=== PATIENT | male | born 1985 | race Caucasian/White ===

== ENCOUNTER → 2016-06-17 | Outpatient (CLI) | payer OTHER ==
[2016-06-17 09:17] LABS: CHLORIDE,CL 109 mmol/L (98-110); SODIUM,NA 143 mmol/L (136-146)
== END ==
LOC: MW.CHRC 08:34
PROVIDERS: ATTEND Family Medicine
DX: E66.9 Obesity, unspecified (principal)
CPT/HCPCS: 36415; 80053; 80061; 83036; 84439; 84443; 85025

== ENCOUNTER → 2016-07-29 | Outpatient (CLI) | payer OTHER | LOC: MW.CHRC 09:26 | PROVIDERS: ATTEND Family Medicine | DX: E03.9 Hypothyroidism, unspecified (principal) | CPT/HCPCS: 36415; 84439; 84443 ==

== ENCOUNTER 2017-11-05 20:21 | Emergency (ER) | payer OTHER ==
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
[2017-11-05] MEDS ORDERED: Ketorolac 60 MG/2 ML SDV IM ONE (20:51)
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
== END 2017-11-05 23:22 | disposition home or self-care (01) ==
LOC: MW.ED 20:21
DX: M54.15 Radiculopathy, thoracolumbar region (principal); V89.2XXA Person injured in unspecified motor-vehicle accident, traffic, initial encounter
CPT/HCPCS: 72128; 72131; 96372; 99283; J1885

== ENCOUNTER 2020-11-24 18:46 | Observation (INO) | payer BC, OTHER ==
[2020-11-24] MEDS ORDERED: Sodium Chloride 0.9% 2.5 ML Syringe FLUSH PRN (19:04)
[2020-11-24] MEDS ORDERED: Sodium Chloride 0.9% 10 ML Syringe FLUSH PRN (19:04)
[2020-11-24] MEDS ORDERED: Aspirin 81 MG Tab.Chew PO ONE (19:21)
--- NOTE | 2020-11-24 19:25 | EDM.PDOC ---
ED HPI GENERAL MEDICAL PROBLEM - General Chief Complaint: Chest Pain Stated Complaint: CHEST PAIN PAIN IN RIGHT ARM Time Seen by Provider: 11/24/20 19:06 - History of Present Illness INITIAL COMMENTS - FREE TEXT/NARRATIVE: 35-year-old male history of obesity hypertension hypothyroidism and ADHD he is a non-smoker however his father and grandfather both had MIs in their 40s he is presenting with chest pain. Starting around 230 he developed a substernal chest discomfort with some radiation into the left arm and the neck that was associated with a new dyspnea on exertion. His symptoms do worsen with exertion. He currently has about 7 or 8 out of 10 chest discomfort which is the worst it has been. He has no prior history of stress testing or angiography. He also has sleep apnea and is minimally compliant with his CPAP. He has not had any aspirin as yet. No cough or fever or other symptoms. Left Chest Pain Score (Numeric/FACES): 4 - Related Data Allergies Allergy/AdvReac Type Severity Reaction Status Date / Time No Known Allergies Allergy Verified 11/05/17 20:48 Home Meds: Home Meds Ibuprofen 800 mg PO DAILY 11/24/20 [History] Levothyroxine 75 mcg PO ACBREAKFAST 11/24/20 [History] Lisdexamfetamine [Vyvanse] 70 mg PO DAILY 11/24/20 [History] lisinopriL [Lisinopril] 20 mg PO DAILY 11/24/20 [History] Past Medical History - Past Health History Medical/Surgical History: Denies Medical/Surgical History Cardiovascular History: Reports: Hypertension Psychiatric History: Reports: ADHD - Infectious Disease History Infectious Disease History: Reports: Chicken Pox Social & Family History - Family History Cardiac: Reports: Hypertension Other Cardiac Family History: Father, Grandfather (Paternal), and Grandfather (Maternal) had CT's in their 40's. - Tobacco Use Tobacco Use Status *Q: Never Tobacco User Second Hand Smoke Exposure: No - Caffeine Use Caffeine Use: Reports: None - Recreational Drug Use Recreational Drug Use: No ED ROS GENERAL - Review of Systems Review Of Systems: See Below Free Text/Narrative/Comment: General: No fever. Skin: No rash. Eyes: No vision problems. ENT: No sore throat. Neck: No neck stiffness. Respiratory: Per HPI Cardiac: Per HPI Gastrointestinal: No nausea, vomiting or abdominal pain. Urinary: No dysuria. Musculoskeletal: No myalgias/arthralgias. Neurologic: No headache. ED EXAM, GENERAL - Physical Exam Exam: See Below Free Text/Narrative:: General Appearance: No acute distress, appears comfortable Skin: No rash HEENT: Normocephalic/atraumatic, sclera anicteric, mucous membranes moist Neck: Normal range of motion Chest and Lungs: Bilateral breath sounds, clear to auscultation Cardiovascular: Regular rate and rhythm, no murmur Abdomen: Soft, non-tender Back: Normal Musculoskeletal: No edema or tenderness Neurologic: Awake, alert, no obvious deficits, moving all extremities Psychiatric: Appropriate, cooperative #1 Interpretation EKG Date: 11/24/20 Time: 19:24 EKG Interpretation Comments: Sinus rhythm with a rate of 97 and nonspecific intraventricular conduction delay but no findings of acute ischemia no ST elevations or depressions. Course - Vital Signs Last Recorded V/S: Last Vital Signs Temp 98.4 F 11/24/20 18:51 Pulse 87 11/24/20 20:38 Resp 14 11/24/20 20:38 BP 145/82 H 11/24/20 20:38 Pulse Ox 95 11/24/20 20:38 - Orders/Labs/Meds Orders: Active Orders 24 hr Category Date Time Status Patient Status [ADT] Routine ADT 11/24/20 21:34 Ordered Nitroglycerin [Nitrostat] Med 11/24/20 19:21 Active 0.4 mg SL Q5M PRN Sodium Chloride 0.9% [Saline Flush] Med 11/24/20 19:04 Active 10 ml FLUSH ASDIRECTED PRN Sodium Chloride 0.9% [Saline Flush] Med 11/24/20 19:04 Active 2.5 ml FLUSH ASDIRECTED PRN Saline Lock Insert [OM.PC] Stat Oth 11/24/20 19:04 Ordered Medication Orders Nitroglycerin (Nitroglycerin 0.4 Mg Tab.Sl) 0.4 mg SL Q5M PRN PRN Reason: Chest Pain Last Admin: 11/24/20 19:34 Dose: 0.4 mg Documented by: Admin: 11/24/20 19:27 Dose: 0.4 mg Documented by: STEPHANIE Sodium Chloride (Sodium Chloride 0.9% 10 Ml Syringe) 10 ml FLUSH ASDIRECTED PRN PRN Reason: Keep Vein Open Sodium Chloride (Sodium Chloride 0.9% 2.5 Ml Syringe) 2.5 ml FLUSH ASDIRECTED PRN PRN Reason: Keep Vein Open Labs: Laboratory Tests 11/24/20 11/24/20 11/24/20 Range/Units 18:30 18:30 18:50 WBC 11.50 H (4.0-11.0) K/uL RBC 4.98 (4.50-5.90) M/uL Hgb 13.9 (13.0-17.0) g/dL Hct 42.1 (38.0-50.0) % MCV 84.5 (80.0-98.0) fL MCH 27.9 (27.0-32.0) pg MCHC 33.0 (31.0-37.0) g/dL RDW Std Deviation 44.7 (28.0-62.0) fl RDW Coeff of Hiram 15 (11.0-15.0) % Plt Count 302 (150-400) K/uL MPV 11.70 (7.40-12.00) fL Neut % (Auto) 61.3 (48.0-80.0) % Lymph % (Auto) 30.8 (16.0-40.0) % Alpine % (Auto) 6.9 (0.0-15.0) % Eos % (Auto) 0.8 (0.0-7.0) % Baso % (Auto) 0.2 (0.0-1.5) % Neut # (Auto) 7.1 H (1.4-5.7) K/uL Lymph # (Auto) 3.5 H (0.6-2.4) K/uL Alpine # (Auto) 0.8 (0.0-0.8) K/uL Eos # (Auto) 0.1 (0.0-0.7) K/uL Baso # (Auto) 0.0 (0.0-0.1) K/uL Nucleated RBC % 0.0 /100WBC Nucleated RBCs # 0 K/uL Sodium 140 (136-148) mmol/L Potassium 3.9 (3.5-5.1) mmol/L Chloride 102 (98-107) mmol/L Carbon Dioxide 26.9 (21.0-32.0) mmol/L BUN 19 H (7.0-18.0) mg/dL Creatinine 1.3 (0.8-1.3) mg/dL Est Cr Clr Drug Dosing 88.78 mL/min Estimated GFR (MDRD) > 60.0 ml/min Glucose 90 (74-106) mg/dL Calcium 9.1 (8.5-10.1) mg/dL Total Bilirubin 0.6 (0.2-1.0) mg/dL AST 27 (15-37) IU/L ALT 35 (14-63) IU/L Alkaline Phosphatase 62 (46-116) U/L Troponin I < 0.050 (0.000-0.056) ng/mL Total Protein 8.7 H (6.4-8.2) g/dL Albumin 4.2 (3.4-5.0) g/dL Globulin 4.5 H (2.6-4.0) g/dL Albumin/Globulin Ratio 0.9 (0.9-1.6) Free T4 0.77 (0.76-1.46) ng/dL TSH, Ultra Sensitive 18.65 H (0.36-3.74) uIU/mL SARS-CoV-2 RNA (CATHERINE) (NEGATIVE) 11/24/20 11/24/20 Range/Units 20:30 20:30 WBC (4.0-11.0) K/uL RBC (4.50-5.90) M/uL Hgb (13.0-17.0) g/dL Hct (38.0-50.0) % MCV (80.0-98.0) fL MCH (27.0-32.0) pg MCHC (31.0-37.0) g/dL RDW Std Deviation (28.0-62.0) fl RDW Coeff of Hiram (11.0-15.0) % Plt Count (150-400) K/uL MPV (7.40-12.00) fL Neut % (Auto) (48.0-80.0) % Lymph % (Auto) (16.0-40.0) % Alpine % (Auto) (0.0-15.0) % Eos % (Auto) (0.0-7.0) % Baso % (Auto) (0.0-1.5) % Neut # (Auto) (1.4-5.7) K/uL Lymph # (Auto) (0.6-2.4) K/uL Alpine # (Auto) (0.0-0.8) K/uL Eos # (Auto) (0.0-0.7) K/uL Baso # (Auto) (0.0-0.1) K/uL Nucleated RBC % /100WBC Nucleated RBCs # K/uL Sodium (136-148) mmol/L Potassium (3.5-5.1) mmol/L Chloride (98-107) mmol/L Carbon Dioxide (21.0-32.0) mmol/L BUN (7.0-18.0) mg/dL Creatinine (0.8-1.3) mg/dL Est Cr Clr Drug Dosing mL/min Estimated GFR (MDRD) ml/min Glucose (74-106) mg/dL Calcium (8.5-10.1) mg/dL Total Bilirubin (0.2-1.0) mg/dL AST (15-37) IU/L ALT (14-63) IU/L Alkaline Phosphatase (46-116) U/L Troponin I < 0.050 (0.000-0.056) ng/mL Total Protein (6.4-8.2) g/dL Albumin (3.4-5.0) g/dL Globulin (2.6-4.0) g/dL Albumin/Globulin Ratio (0.9-1.6) Free T4 (0.76-1.46) ng/dL TSH, Ultra Sensitive (0.36-3.74) uIU/mL SARS-CoV-2 RNA (CATHERINE) NEGATIVE (NEGATIVE) Meds: Medications Generic Name Dose Route Start Last Admin Trade Name Freq PRN Reason Stop Dose Admin Nitroglycerin 0.4 mg 11/24/20 19:21 11/24/20 19:34 Nitroglycerin 0.4 Mg Tab.Sl SL 0.4 mg Q5M PRN Administration Chest Pain Sodium Chloride 10 ml 11/24/20 19:04 Sodium Chloride 0.9% 10 Ml Syringe FLUSH ASDIRECTED PRN Keep Vein Open Sodium Chloride 2.5 ml 11/24/20 19:04 Sodium Chloride 0.9% 2.5 Ml Syringe FLUSH ASDIRECTED PRN Keep Vein Open Discontinued Medications Generic Name Dose Route Start Last Admin Trade Name Amauri PRN Reason Stop Dose Admin Acetaminophen 650 mg 11/24/20 19:41 11/24/20 20:22 Acetaminophen 325 Mg Tab PO 11/24/20 19:42 650 mg NOW ONE Administration Aspirin 324 mg 11/24/20 19:21 11/24/20 19:26 Aspirin 81 Mg Tab.Chew PO 11/24/20 19:22 324 mg ONETIME ONE Administration Departure - Departure Time of Disposition: 21:35 Disposition: Refer to Observation Condition: Good Clinical Impression: Chest pain - Discharge Information Forms: ED Department Discharge Sepsis Event Note (ED) - Focused Exam Vital Signs: Vital Signs Temp Pulse Resp BP BP Pulse Ox 11/24/20 20:38 87 14 145/82 H 95 11/24/20 19:41 101 H 22 H 128/70 94 L 11/24/20 19:37 107 H 24 H 123/73 95 11/24/20 19:34 123/73 11/24/20 19:27 157/88 H 11/24/20 18:51 98.4 F 95 21 H 175/106 H 97 - My Orders Last 24 Hours: My Active Orders 11/24/20 19:21 Nitroglycerin [Nitrostat] 0.4 mg SL Q5M PRN 11/24/20 21:34 Patient Status [ADT] Routine - Assessment/Plan Last 24 Hours: My Active Orders 11/24/20 19:21 Nitroglycerin [Nitrostat] 0.4 mg SL Q5M PRN 11/24/20 21:34 Patient Status [ADT] Routine Assessment:: 35-year-old male presenting with chest pain that does have some concerning features for potential cardiac etiology EKG is without STEMI or findings of acute ischemia. Aspirin and nitroglycerin will be ordered he is quite hypertensive. Nothing suggest PE or aortic dissection no findings that would suggest myocarditis or pericarditis. Final disposition based on initial work-up response to therapy and heart score. 1939: Chest pain resolved with 2 nitroglycerin blood pressure now 120/80. Initial labs are normal. HEART score is 5. Given this would plan for admission for observation and r/o if 2nd trop is also negative. 2134: Repeat troponin is also negative patient remains chest pain-free. Given patient's elevated heart score patient discussed in full with hospitalist and will admit for observation serial enzymes and outpatient follow-up arrangement.
[2020-11-24 19:26] LABS: BLOOD UREA NITROGEN,BUN 19 mg/dL (7.0-18.0); CARBON DIOXIDE,CO2 26.9 mmol/L (21.0-32.0); CHLORIDE,CL 102 mmol/L (98-107); GLUCOSE RANDOM 90 mg/dL (74-106); POTASSIUM,K 3.9 mmol/L (3.5-5.1); SODIUM,NA 140 mmol/L (136-148)
[2020-11-24] MEDS: Nitroglycerin 0.4 MG Tab.SL SL PRN ×2 (19:27→19:34)
--- NOTE | 2020-11-24 19:38 | CR ---
INDICATION: Chest pain TECHNIQUE: Chest radiograph 1 view COMPARISON: None FINDINGS: The sensitivity and specificity of the exam are severely limited by the patient`s body habitus. Mediastinum: The mediastinum is normal in appearance. The heart silhouette is normal in size and morphology. Lung: Both lungs are unremarkable in appearance. No sign of pleural effusion seen. No pneumothorax is identified. Bone and Soft tissue: Unremarkable for age. IMPRESSION: 1. No acute cardiopulmonary disease is seen. Dictated by: Mushtaq Garcia MD @ 11/24/2020 19:38:02 (Electronically Signed)
[2020-11-24] MEDS ORDERED: Acetaminophen 325 MG Tab PO ONE (19:41)
[2020-11-24] MEDS ORDERED: Ondansetron 4 MG/2 ML SDV IVPUSH PRN (23:43)
[2020-11-24] MEDS ORDERED: Albuterol/Ipratropium 3.0-0.5 MG/3 ML Neb Soln NEB PRN (23:43)
[2020-11-24] MEDS ORDERED: Acetaminophen 325 MG Tab PO PRN (23:43)
--- NOTE | 2020-11-24 23:51 | PCM.HP.2 ---
H&P History of Present Illness - General Date of Service: 11/25/20 Admit Problem/Dx: Admission Diagnosis/Problem Admission Diagnosis/Problem Chest pain - History of Present Illness Initial Comments - Free Text/Narative: 35-year-old male with past medical history of hypertension, hypothyroid, BMI greater than 50, obstructive sleep apnea, ADHD who comes in to the ER with complaints of chest pressure as well as pain radiating to his left arm and left shoulder. Patient states that his symptoms started sometime in the afternoon around 2:30 PM when he was at his work he got up from a chair and walk 50 yards and suddenly developed some shortness of breath he felt like he could not catch his breath. Patient states that he took some rest and his breathing felt a little better but over the next few hours around 6 PM his symptoms got worse and his pain started getting worse with radiation to left arm and shoulder so he came to the ER. In the ER EKG was done which did not show any acute ST or T wave changes indicative of acute ischemia, initial troponin was negative. Patient received 2 doses of sublingual nitro which alleviated his pain. Given patient's risk factors patient was admitted to the hospital for ACS rule out. Left Chest Pain Score (Numeric/FACES): 4 - Related Data Allergies/Adverse Reactions: Allergies Allergy/AdvReac Type Severity Reaction Status Date / Time No Known Allergies Allergy Verified 11/24/20 23:14 Home Medications: Home Meds Ibuprofen 800 mg PO DAILY 11/24/20 [History] Levothyroxine 75 mcg PO ACBREAKFAST 11/24/20 [History] Lisdexamfetamine [Vyvanse] 70 mg PO DAILY 11/24/20 [History] lisinopriL [Lisinopril] 20 mg PO DAILY 11/24/20 [History] Past Medical History - Past Health History Medical/Surgical History: Denies Medical/Surgical History Cardiovascular History: Reports: High Cholesterol, Hypertension Psychiatric History: Reports: ADHD Endocrine/Metabolic History: Reports: Obesity/BMI 30+ - Infectious Disease History Infectious Disease History: Reports: Chicken Pox - Past Surgical History HEENT Surgical History: Reports: Other (See Below) Other HEENT Surgeries/Procedures: sinus surgery Musculoskeletal Surgical History: Reports: Other (See Below) Other Musculoskeletal Surgeries/Procedures:: acl graft left knee, microdiscectomly L 4 L 5, bulging disc L 5 S1 Social & Family History - Family History Cardiac: Reports: Hypertension Other Cardiac Family History: Father, Grandfather (Paternal), and Grandfather (Maternal) had OK's in their 40's. - Tobacco Use Tobacco Use Status *Q: Never Tobacco User Second Hand Smoke Exposure: No - Caffeine Use Caffeine Use: Reports: None - Recreational Drug Use Recreational Drug Use: No H&P Review of Systems - Review of Systems: Review Of Systems: See Below General: Denies: Fever, Chills, Malaise Pulmonary: Reports: Shortness of Breath. Denies: Wheezing, Pleuritic Chest Pain Cardiovascular: Reports: Chest Pain, Dyspnea on Exertion. Denies: Palpitations, Orthopnea, PND, Edema, Lightheadedness Gastrointestinal: Denies: Abdominal Pain, Anorexia, Black Stool, Bloody Stool, Constipation, Diarrhea Genitourinary: Denies: Frequency, Burning, Pain Musculoskeletal: Reports: Shoulder Pain, Arm Pain. Denies: Neck Pain, Back Pain, Hand Pain, Muscle Pain, Muscle Stiffness Skin: Denies: Cyanosis, Jaundice, Mottled Psychiatric: Denies: Confusion, Depression, Mood Lability Neurological: Denies: Confusion, Dizziness, Headache, Numbness Exam - Exam Exam: See Below - Vital Signs Vital Signs: Last Vital Signs Temp 36.4 C 11/24/20 23:12 Pulse 83 11/24/20 23:12 Resp 16 11/24/20 23:12 BP 136/87 11/24/20 23:12 Pulse Ox 96 11/24/20 23:12 Weight: 200.941 kg - Exam General: Alert, Oriented Neck: Supple Lungs: Clear to Auscultation, Normal Respiratory Effort, Decreased Breath Sounds Cardiovascular: Regular Rate, Regular Rhythm, Normal S1, Normal S2 - Patient Data Lab Results Last 24 hrs: Laboratory Results - last 24 hr 11/24/20 11/24/20 11/24/20 Range/Units 18:30 18:30 18:50 WBC 11.50 H (4.0-11.0) K/uL RBC 4.98 (4.50-5.90) M/uL Hgb 13.9 (13.0-17.0) g/dL Hct 42.1 (38.0-50.0) % MCV 84.5 (80.0-98.0) fL MCH 27.9 (27.0-32.0) pg MCHC 33.0 (31.0-37.0) g/dL RDW Std Deviation 44.7 (28.0-62.0) fl RDW Coeff of Hiram 15 (11.0-15.0) % Plt Count 302 (150-400) K/uL MPV 11.70 (7.40-12.00) fL Neut % (Auto) 61.3 (48.0-80.0) % Lymph % (Auto) 30.8 (16.0-40.0) % [place] % (Auto) 6.9 (0.0-15.0) % Eos % (Auto) 0.8 (0.0-7.0) % Baso % (Auto) 0.2 (0.0-1.5) % Neut # (Auto) 7.1 H (1.4-5.7) K/uL Lymph # (Auto) 3.5 H (0.6-2.4) K/uL [place] # (Auto) 0.8 (0.0-0.8) K/uL Eos # (Auto) 0.1 (0.0-0.7) K/uL Baso # (Auto) 0.0 (0.0-0.1) K/uL Nucleated RBC % 0.0 /100WBC Nucleated RBCs # 0 K/uL Sodium 140 (136-148) mmol/L Potassium 3.9 (3.5-5.1) mmol/L Chloride 102 (98-107) mmol/L Carbon Dioxide 26.9 (21.0-32.0) mmol/L BUN 19 H (7.0-18.0) mg/dL Creatinine 1.3 (0.8-1.3) mg/dL Est Cr Clr Drug Dosing 88.78 mL/min Estimated GFR (MDRD) > 60.0 ml/min Glucose 90 (74-106) mg/dL Calcium 9.1 (8.5-10.1) mg/dL Total Bilirubin 0.6 (0.2-1.0) mg/dL AST 27 (15-37) IU/L ALT 35 (14-63) IU/L Alkaline Phosphatase 62 (46-116) U/L Troponin I < 0.050 (0.000-0.056) ng/mL Total Protein 8.7 H (6.4-8.2) g/dL Albumin 4.2 (3.4-5.0) g/dL Globulin 4.5 H (2.6-4.0) g/dL Albumin/Globulin Ratio 0.9 (0.9-1.6) Free T4 0.77 (0.76-1.46) ng/dL TSH, Ultra Sensitive 18.65 H (0.36-3.74) uIU/mL SARS-CoV-2 RNA (CATHERINE) (NEGATIVE) 11/24/20 11/24/20 Range/Units 20:30 20:30 WBC (4.0-11.0) K/uL RBC (4.50-5.90) M/uL Hgb (13.0-17.0) g/dL Hct (38.0-50.0) % MCV (80.0-98.0) fL MCH (27.0-32.0) pg MCHC (31.0-37.0) g/dL RDW Std Deviation (28.0-62.0) fl RDW Coeff of Hiram (11.0-15.0) % Plt Count (150-400) K/uL MPV (7.40-12.00) fL Neut % (Auto) (48.0-80.0) % Lymph % (Auto) (16.0-40.0) % [place] % (Auto) (0.0-15.0) % Eos % (Auto) (0.0-7.0) % Baso % (Auto) (0.0-1.5) % Neut # (Auto) (1.4-5.7) K/uL Lymph # (Auto) (0.6-2.4) K/uL [place] # (Auto) (0.0-0.8) K/uL Eos # (Auto) (0.0-0.7) K/uL Baso # (Auto) (0.0-0.1) K/uL Nucleated RBC % /100WBC Nucleated RBCs # K/uL Sodium (136-148) mmol/L Potassium (3.5-5.1) mmol/L Chloride (98-107) mmol/L Carbon Dioxide (21.0-32.0) mmol/L BUN (7.0-18.0) mg/dL Creatinine (0.8-1.3) mg/dL Est Cr Clr Drug Dosing mL/min Estimated GFR (MDRD) ml/min Glucose (74-106) mg/dL Calcium (8.5-10.1) mg/dL Total Bilirubin (0.2-1.0) mg/dL AST (15-37) IU/L ALT (14-63) IU/L Alkaline Phosphatase (46-116) U/L Troponin I < 0.050 (0.000-0.056) ng/mL Total Protein (6.4-8.2) g/dL Albumin (3.4-5.0) g/dL Globulin (2.6-4.0) g/dL Albumin/Globulin Ratio (0.9-1.6) Free T4 (0.76-1.46) ng/dL TSH, Ultra Sensitive (0.36-3.74) uIU/mL SARS-CoV-2 RNA (CATHERINE) NEGATIVE (NEGATIVE) Result Diagrams: 11/24/20 18:30 11/24/20 18:30 Sepsis Event Note - Evaluation Sepsis Screening Result: No Definite Risk - Focused Exam Vital Signs: Vital Signs Temp Pulse Resp BP BP Pulse Ox 11/24/20 23:12 36.4 C 83 16 136/87 96 11/24/20 22:13 83 16 149/94 H 94 L 11/24/20 20:38 87 14 145/82 H 95 11/24/20 19:41 101 H 22 H 128/70 94 L 11/24/20 19:37 107 H 24 H 123/73 95 11/24/20 19:34 123/73 11/24/20 19:27 157/88 H 11/24/20 18:51 36.9 C 95 21 H 175/106 H 97 - Problem List (1) Hypothyroidism SNOMED Code(s): 05036853 ICD Code: E03.9 - HYPOTHYROIDISM, UNSPECIFIED Status: Acute Current Visit: Yes (2) Obstructive sleep apnea SNOMED Code(s): 60709890 ICD Code: G47.33 - OBSTRUCTIVE SLEEP APNEA (ADULT) (PEDIATRIC) Status: Acu te Current Visit: Yes (3) BMI 50.0-59.9, adult SNOMED Code(s): 420202482, 391930046 ICD Code: Z68.43 - BODY MASS INDEX [BMI] 50.0-59.9, ADULT Status: Acute Current Visit: Yes (4) Hypertension SNOMED Code(s): 07624047 ICD Code: I10 - ESSENTIAL (PRIMARY) HYPERTENSION Status: Acute Current Visit: Yes (5) ADHD SNOMED Code(s): 683684784 ICD Code: F90.9 - ATTENTION-DEFICIT HYPERACTIVITY DISORDER, UNSPECIFIED TYPE Status: Acute Current Visit: Yes (6) Chest pain SNOMED Code(s): 42597371 ICD Code: R07.9 - CHEST PAIN, UNSPECIFIED Status: Acute Current Visit: Yes Problem List Initiated/Reviewed/Updated: Yes Orders Last 24hrs: Active Orders 24 hr Category Date Time Status Patient Status [ADT] Routine ADT 11/24/20 21:34 Active Ambulate [RC] ASDIRECTED Care 11/24/20 23:43 Ordered Antiembolic Devices [RC] PER UNIT ROUTINE Care 11/24/20 23:44 Ordered Oxygen Therapy [RC] PRN Care 11/24/20 23:43 Ordered Pulse Oximetry [RC] PRN Care 11/24/20 23:43 Ordered RT Aerosol Therapy [RC] ASDIRECTED Care 11/24/20 23:50 Ordered VTE/DVT Education [RC] PER UNIT ROUTINE Care 11/24/20 23:43 Ordered Vital Signs [RC] Q4H Care 11/24/20 23:43 Ordered Heart Healthy Diet [DIET] Diet 11/25/20 Breakfast Ordered TROPONIN I [CHEM] Routine Lab 11/24/20 23:25 Received Acetaminophen [TylenoL] Med 11/24/20 23:43 Ordered 650 mg PO Q4H PRN Albuterol/Ipratropium [DuoNeb 3.0-0.5 MG/3 ML] Med 11/24/20 23:43 Ordered 3 ml NEB Q4HRRT PRN Morphine Med 11/24/20 23:43 Ordered 1 mg IVPUSH Q3H PRN Nitroglycerin [Nitrostat] Med 11/24/20 19:21 Active 0.4 mg SL Q5M PRN Ondansetron [Zofran] Med 11/24/20 23:43 Ordered 4 mg IVPUSH Q4H PRN Sodium Chloride 0.9% [Saline Flush] Med 11/24/20 19:04 Active 10 ml FLUSH ASDIRECTED PRN Sodium Chloride 0.9% [Saline Flush] Med 11/24/20 19:04 Active 2.5 ml FLUSH ASDIRECTED PRN Saline Lock Insert [OM.PC] Stat Oth 11/24/20 19:04 Ordered Sequential Compression Device [OM.PC] Per Unit Routine Oth 11/24/20 23:43 Ordered Resuscitation Status Routine Resus Stat 11/24/20 23:43 Ordered Medication Orders Nitroglycerin (Nitroglycerin 0.4 Mg Tab.Sl) 0.4 mg SL Q5M PRN PRN Reason: Chest Pain Last Admin: 11/24/20 19:34 Dose: 0.4 mg Documented by: Admin: 11/24/20 19:27 Dose: 0.4 mg Documented by: STEPHANIE Sodium Chloride (Sodium Chloride 0.9% 10 Ml Syringe) 10 ml FLUSH ASDIRECTED PRN PRN Reason: Keep Vein Open Sodium Chloride (Sodium Chloride 0.9% 2.5 Ml Syringe) 2.5 ml FLUSH ASDIRECTED PRN PRN Reason: Keep Vein Open Assessment/Plan Comment:: 35-year-old male admitted for ACS rule out Nonischemic EKG First 2 sets of troponin negative, will obtain third set of troponin We will check hemoglobin A1c, lipid panel, TSH is high but T4 is normal Patient's pain subsided with nitro, likely angina We will start patient on aspirin and low-dose atorvastatin Patient will require outpatient stress test and follow-up with cardiology upon discharge We will obtain a 2D echo as well Cardiac diet Patient was thoroughly counseled about healthy lifestyle and he was encouraged to lose some weight to achieve his ideal body weight.
[2020-11-24] MEDS ORDERED: Morphine 2 MG/ML SYRINGE IVPUSH PRN (23:55)
[2020-11-25 01:04] LABS: HEMOGLOBIN A1C 5.9 %
--- NOTE | 2020-11-25 14:00 | PCM.DCSUM1 ---
Discharge Summary - Hospital Course Free Text/Narrative:: 35-year-old male with past medical history of hypertension, hypothyroid, BMI greater than 50, obstructive sleep apnea, ADHD who comes in to the ER with complaints of chest pressure as well as pain radiating to his left arm and left shoulder. Patient states that his symptoms started sometime in the afternoon around 2:30 PM when he was at his work he got up from a chair and walk 50 yards and suddenly developed some shortness of breath he felt like he could not catch his breath. Patient states that he took some rest and his breathing felt a little better but over the next few hours around 6 PM his symptoms got worse and his pain started getting worse with radiation to left arm and shoulder so he came to the ER. In the ER EKG was done which did not show any acute ST or T wave changes indicative of acute ischemia, initial troponin was negative. Patient received 2 doses of sublingual nitro which alleviated his pain. Given patient's risk factors patient was admitted to the hospital for ACS rule out. Troponin X3 were trended all negative, telemetry unremarkable. Lipid panel showed HLD, tsh was high but was normal. 2D ECHO was done which was normal as well. Patient was started on ASA and statin and given script to get stress test done upon dc. Refe rral was and to cardiology and fu appt with pcp was made as well. Patient was pain free and was discharged in a stable condition. He was thoroughly counselled about losing weight and healthier life style. Diagnosis: Stroke: No - Discharge Data Discharge Date: 11/25/20 Discharge Disposition: Home, Self-Care 01 Condition: Good - Referral to Home Health Primary Care Physician: PCP None - Discharge Diagnosis/Problem(s) (1) Hypothyroidism SNOMED Code(s): 61548540 ICD Code: E03.9 - HYPOTHYROIDISM, UNSPECIFIED Status: Acute (2) Obstructive sleep apnea SNOMED Code(s): 30583557 ICD Code: G47.33 - OBSTRUCTIVE SLEEP APNEA (ADULT) (PEDIATRIC) Status: Acute (3) BMI 50.0-59.9, adult SNOMED Code(s): 759038250, 551769158 ICD Code: Z68.43 - BODY MASS INDEX [BMI] 50.0-59.9, ADULT Status: Acute (4) Hypertension SNOMED Code(s): 33540899 ICD Code: I10 - ESSENTIAL (PRIMARY) HYPERTENSION Status: Acute (5) ADHD SNOMED Code(s): 702768597 ICD Code: F90.9 - ATTENTION-DEFICIT HYPERACTIVITY DISORDER, UNSPECIFIED TYPE Status: Acute (6) Chest pain SNOMED Code(s): 68127608 ICD Code: R07.9 - CHEST PAIN, UNSPECIFIED Status: Acute - Patient Instructions Diet: Heart Healthy Diet Activity: As Tolerated Driving: May Drive Today Showering/Bathing: May Shower Notify Provider of: Fever, Increased Pain, Swelling and Redness, Drainage, Nausea and/or Vomiting - Discharge Plan *PRESCRIPTION DRUG MONITORING PROGRAM REVIEWED*: No *COPY OF PRESCRIPTION DRUG MONITORING REPORT IN PATIENT SOPHIE: No Prescriptions/Med Rec: Aspirin 81 mg PO BEDTIME #30 tab.chew atorvaSTATin [Lipitor] 40 mg PO BEDTIME #30 tablet Nitroglycerin [Nitrostat] 0.4 mg SL Q5M PRN #6 tab.sl PRN Reason: Chest Pain Home Medications: Home Meds Ibuprofen 800 mg PO DAILY 11/24/20 [History] Levothyroxine 75 mcg PO ACBREAKFAST 11/24/20 [History] Lisdexamfetamine [Vyvanse] 70 mg PO DAILY 11/24/20 [History] lisinopriL [Lisinopril] 20 mg PO DAILY 11/24/20 [History] Aspirin 81 mg PO BEDTIME #30 tab.chew 11/25/20 [Rx] Nitroglycerin [Nitrostat] 0.4 mg SL Q5M PRN #6 tab.sl 11/25/20 [Rx] atorvaSTATin [Lipitor] 40 mg PO BEDTIME #30 tablet 11/25/20 [Rx] Patient Handouts: Nonspecific Chest Pain, Adult, Atorvastatin tablets, Nitroglycerin sublingual tablets, Aspirin, ASA oral tablets, Angina, [id number] Forms: ED Department Discharge Referrals: Elías Walters MD [Ordering Only Provider] - 12/01/20 10:00 am - Discharge Summary/Plan Comment DC Time >30 min.: No Total # of Minutes for Discharge Time: 15 - Patient Data Vitals - Most Recent: Last Vital Signs Temp 36.4 C 11/25/20 11:00 Pulse 69 11/25/20 11:00 Resp 18 11/25/20 11:00 BP 150/93 H 11/25/20 11:00 Pulse Ox 94 L 11/25/20 11:00 Weight - Most Recent: 200.941 kg I&O - Last 24 hours: Intake & Output 11/24/20 11/25/20 11/25/20 22:59 06:59 14:59 Intake Total 400 Output Total 650 Balance -250 Lab Results - Last 24 hrs: Laboratory Results - last 24 hr 11/24/20 11/24/20 11/24/20 Range/Units 18:30 18:30 18:30 WBC 11.50 H (4.0-11.0) K/uL RBC 4.98 (4.50-5.90) M/uL Hgb 13.9 (13.0-17.0) g/dL Hct 42.1 (38.0-50.0) % MCV 84.5 (80.0-98.0) fL MCH 27.9 (27.0-32.0) pg MCHC 33.0 (31.0-37.0) g/dL RDW Std Deviation 44.7 (28.0-62.0) fl RDW Coeff of Hiram 15 (11.0-15.0) % Plt Count 302 (150-400) K/uL MPV 11.70 (7.40-12.00) fL Neut % (Auto) 61.3 (48.0-80.0) % Lymph % (Auto) 30.8 (16.0-40.0) % [place] % (Auto) 6.9 (0.0-15.0) % Eos % (Auto) 0.8 (0.0-7.0) % Baso % (Auto) 0.2 (0.0-1.5) % Neut # (Auto) 7.1 H (1.4-5.7) K/uL Lymph # (Auto) 3.5 H (0.6-2.4) K/uL [place] # (Auto) 0.8 (0.0-0.8) K/uL Eos # (Auto) 0.1 (0.0-0.7) K/uL Baso # (Auto) 0.0 (0.0-0.1) K/uL Nucleated RBC % 0.0 /100WBC Nucleated RBCs # 0 K/uL Sodium 140 (136-148) mmol/L Potassium 3.9 (3.5-5.1) mmol/L Chloride 102 (98-107) mmol/L Carbon Dioxide 26.9 (21.0-32.0) mmol/L BUN 19 H (7.0-18.0) mg/dL Creatinine 1.3 (0.8-1.3) mg/dL Est Cr Clr Drug Dosing 88.78 mL/min Estimated GFR (MDRD) > 60.0 ml/min Glucose 90 (74-106) mg/dL Hemoglobin A1c 5.9 (4.5 - 6.2) % Calcium 9.1 (8.5-10.1) mg/dL Total Bilirubin 0.6 (0.2-1.0) mg/dL AST 27 (15-37) IU/L ALT 35 (14-63) IU/L Alkaline Phosphatase 62 (46-116) U/L Troponin I < 0.050 (0.000-0.056) ng/mL Total Protein 8.7 H (6.4-8.2) g/dL Albumin 4.2 (3.4-5.0) g/dL Globulin 4.5 H (2.6-4.0) g/dL Albumin/Globulin Ratio 0.9 (0.9-1.6) Triglycerides (0-200) mg/dL Cholesterol (50-200) mg/dL LDL Cholesterol, Calc (60-180) mg/dL VLDL Cholesterol (5-55) mg/dL HDL Cholesterol (40-60) mg/dL Cholesterol/HDL Ratio (3.3-6.0) Free T4 (0.76-1.46) ng/dL TSH, Ultra Sensitive (0.36-3.74) uIU/mL SARS-CoV-2 RNA (CATHERINE) (NEGATIVE) 11/24/20 11/24/20 11/24/20 Range/Units 18:50 20:30 20:30 WBC (4.0-11.0) K/uL RBC (4.50-5.90) M/uL Hgb (13.0-17.0) g/dL Hct (38.0-50.0) % MCV (80.0-98.0) fL MCH (27.0-32.0) pg MCHC (31.0-37.0) g/dL RDW Std Deviation (28.0-62.0) fl RDW Coeff of Hiram (11.0-15.0) % Plt Count (150-400) K/uL MPV (7.40-12.00) fL Neut % (Auto) (48.0-80.0) % Lymph % (Auto) (16.0-40.0) % [place] % (Auto) (0.0-15.0) % Eos % (Auto) (0.0-7.0) % Baso % (Auto) (0.0-1.5) % Neut # (Auto) (1.4-5.7) K/uL Lymph # (Auto) (0.6-2.4) K/uL [place] # (Auto) (0.0-0.8) K/uL Eos # (Auto) (0.0-0.7) K/uL Baso # (Auto) (0.0-0.1) K/uL Nucleated RBC % /100WBC Nucleated RBCs # K/uL Sodium (136-148) mmol/L Potassium (3.5-5.1) mmol/L Chloride (98-107) mmol/L Carbon Dioxide (21.0-32.0) mmol/L BUN (7.0-18.0) mg/dL Creatinine (0.8-1.3) mg/dL Est Cr Clr Drug Dosing mL/min Estimated GFR (MDRD) ml/min Glucose (74-106) mg/dL Hemoglobin A1c (4.5 - 6.2) % Calcium (8.5-10.1) mg/dL Total Bilirubin (0.2-1.0) mg/dL AST (15-37) IU/L ALT (14-63) IU/L Alkaline Phosphatase (46-116) U/L Troponin I < 0.050 (0.000-0.056) ng/mL Total Protein (6.4-8.2) g/dL Albumin (3.4-5.0) g/dL Globulin (2.6-4.0) g/dL Albumin/Globulin Ratio (0.9-1.6) Triglycerides (0-200) mg/dL Cholesterol (50-200) mg/dL LDL Cholesterol, Calc (60-180) mg/dL VLDL Cholesterol (5-55) mg/dL HDL Cholesterol (40-60) mg/dL Cholesterol/HDL Ratio (3.3-6.0) Free T4 0.77 (0.76-1.46) ng/dL TSH, Ultra Sensitive 18.65 H (0.36-3.74) uIU/mL SARS-CoV-2 RNA (CATHERINE) NEGATIVE (NEGATIVE) 11/24/20 11/24/20 Range/Units 23:25 23:25 WBC (4.0-11.0) K/uL RBC (4.50-5.90) M/uL Hgb (13.0-17.0) g/dL Hct (38.0-50.0) % MCV (80.0-98.0) fL MCH (27.0-32.0) pg MCHC (31.0-37.0) g/dL RDW Std Deviation (28.0-62.0) fl RDW Coeff of Hiram (11.0-15.0) % Plt Count (150-400) K/uL MPV (7.40-12.00) fL Neut % (Auto) (48.0-80.0) % Lymph % (Auto) (16.0-40.0) % Williams % (Auto) (0.0-15.0) % Eos % (Auto) (0.0-7.0) % Baso % (Auto) (0.0-1.5) % Neut # (Auto) (1.4-5.7) K/uL Lymph # (Auto) (0.6-2.4) K/uL Williams # (Auto) (0.0-0.8) K/uL Eos # (Auto) (0.0-0.7) K/uL Baso # (Auto) (0.0-0.1) K/uL Nucleated RBC % /100WBC Nucleated RBCs # K/uL Sodium (136-148) mmol/L Potassium (3.5-5.1) mmol/L Chloride (98-107) mmol/L Carbon Dioxide (21.0-32.0) mmol/L BUN (7.0-18.0) mg/dL Creatinine (0.8-1.3) mg/dL Est Cr Clr Drug Dosing mL/min Estimated GFR (MDRD) ml/min Glucose (74-106) mg/dL Hemoglobin A1c (4.5 - 6.2) % Calcium (8.5-10.1) mg/dL Total Bilirubin (0.2-1.0) mg/dL AST (15-37) IU/L ALT (14-63) IU/L Alkaline Phosphatase (46-116) U/L Troponin I < 0.050 (0.000-0.056) ng/mL Total Protein (6.4-8.2) g/dL Albumin (3.4-5.0) g/dL Globulin (2.6-4.0) g/dL Albumin/Globulin Ratio (0.9-1.6) Triglycerides 140 (0-200) mg/dL Cholesterol 274 H (50-200) mg/dL LDL Cholesterol, Calc 204 H (60-180) mg/dL VLDL Cholesterol 28 (5-55) mg/dL HDL Cholesterol 42 (40-60) mg/dL Cholesterol/HDL Ratio 6.5 H (3.3-6.0) Free T4 (0.76-1.46) ng/dL TSH, Ultra Sensitive (0.36-3.74) uIU/mL SARS-CoV-2 RNA (CATHERINE) (NEGATIVE) Med Orders - Current: Current Medications Acetaminophen (Acetaminophen 325 Mg Tab) 650 mg PO Q4H PRN PRN Reason: Pain (Mild 1-3)/fever Albuterol/Ipratropium (Albuterol/Ipratropium 3.0-0.5 Mg/3 Ml Neb Soln) 3 ml NEB Q4HRRT PRN PRN Reason: Shortness Of Breath/wheezing Aspirin (Aspirin 81 Mg Tab.Chew) 81 mg PO BEDTIME MIRYAM Atorvastatin Calcium (Atorvastatin 40 Mg Tab) 40 mg PO BEDTIME MIRYAM Morphine Sulfate (Morphine 2 Mg/Ml Syringe) 1 mg IVPUSH Q3H PRN PRN Reason: Pain (severe 7-10) Nitroglycerin (Nitroglycerin 0.4 Mg Tab.Sl) 0.4 mg SL Q5M PRN PRN Reason: Chest Pain Last Admin: 11/24/20 19:34 Dose: 0.4 mg Documented by: Ondansetron HCl (Ondansetron 4 Mg/2 Ml Sdv) 4 mg IVPUSH Q4H PRN PRN Reason: Nausea/Vomiting Sodium Chloride (Sodium Chloride 0.9% 10 Ml Syringe) 10 ml FLUSH ASDIRECTED PRN PRN Reason: Keep Vein Open Sodium Chloride (Sodium Chloride 0.9% 2.5 Ml Syringe) 2.5 ml FLUSH ASDIRECTED PRN PRN Reason: Keep Vein Open Discontinued Medications Acetaminophen (Acetaminophen 325 Mg Tab) 650 mg PO NOW ONE Stop: 11/24/20 19:42 Last Admin: 11/24/20 20:22 Dose: 650 mg Documented by: Aspirin (Aspirin 81 Mg Tab.Chew) 324 mg PO ONETIME ONE Stop: 11/24/20 19:22 Last Admin: 11/24/20 19:26 Dose: 324 mg Documented by:
[2020-11-25] MEDS ORDERED: Aspirin 81 MG Tab.Chew PO SCH (21:00)
[2020-11-25] MEDS ORDERED: atorvaSTATin 40 MG Tab PO SCH (21:00)
--- NOTE | 2020-11-26 11:35 | ECHO ---
EXAM DATE: 11/24/20 PATIENT'S AGE: 35 The ECHO report has been scanned into [employer] and can be seen in this patient's EMR (Electronic Medical Record) under the REPORTS section. The report has also been scanned into PACS. ALLISON
== END 2020-11-25 15:00 | disposition home or self-care (01) ==
LOC: MW.ED 18:46 → MW.MS 21:34 → UNDOADMOB 22:05
PROVIDERS: ADMIT Student in an Organized Health Care Education/Training Program; ATTEND Student in an Organized Health Care Education/Training Program
DX: R07.9 Chest pain, unspecified (principal); E03.9 Hypothyroidism, unspecified; G47.33 Obstructive sleep apnea (adult) (pediatric); I10 Essential (primary) hypertension; F90.9 Attention-deficit hyperactivity disorder, unspecified type; Z68.43 Body mass index [BMI] 50.0-59.9, adult; Z79.890 Hormone replacement therapy; Z79.899 Other long term (current) drug therapy; Z20.822 Contact with and (suspected) exposure to COVID-19
CPT/HCPCS: 36415; 71045; 80053; 80061; 83036; 84439; 84443; 84484; 85025; 87635; 93005; 93306; 99285; A9270; G0378; U0002

== ENCOUNTER 2022-10-27 10:50 | Emergency (ER) | payer BC, OTHER ==
[2022-10-27] MEDS ORDERED: Acetaminophen/oxyCODONE 325-5 MG Tab PO ONE (12:33)
[2022-10-27 13:04] LABS: BASOPHILS PERCENT AUTO 0.2 % (0.0-1.5); EOSINOPHILS PERCENT AUTO 0.4 % (0.0-7.0); HEMATOCRIT 43.2 % (38.0-50.0); HEMOGLOBIN 13.7 g/dL (13.0-17.0); LYMPHOCYTES PERCENT AUTO 32.6 % (16.0-40.0); MEAN CORPUSCULAR HEMOGLOBIN 26.6 pg (27.0-32.0); MEAN CORPUSCULAR HGB CONC 31.7 g/dL (31.0-37.0); MEAN CORPUSCULAR VOLUME 83.9 fL (80.0-98.0); MONOCYTES ABSOLUTE AUTO 1.2 K/uL (0.0-0.8); NEUTROPHILS ABSOLUTE AUTO 4.9 K/uL (1.4-5.7); NEUTROPHILS PERCENT AUTO 53.8 % (48.0-80.0); NRBC ABSOLUTE 0 K/uL; PLATELET COUNT,PLT 317 K/uL (150-400); RED BLOOD CELL COUNT 5.15 M/uL (4.50-5.90); WHITE BLOOD CELL COUNT,WBC 9.16 K/uL (4.0-11.0)
[2022-10-27 13:35] LABS: A/G RATIO 0.8 (0.9-1.6); ALBUMIN 3.5 g/dL (3.4-5.0); BILIRUBIN TOTAL 0.3 mg/dL (0.2-1.0); CALCIUM 8.8 mg/dL (8.5-10.1); CARBON DIOXIDE,CO2 28.8 mmol/L (21.0-32.0); EST CRCL DRUG DOSING (CG) 113.19 mL/min; POTASSIUM,K 3.3 mmol/L (3.5-5.1); PROTEIN TOTAL,TP 8.1 g/dL (6.4-8.2)
== END 2022-10-27 17:26 | disposition home or self-care (01) ==
LOC: MW.ED 10:50
DX: M54.42 Lumbago with sciatica, left side (principal); E78.00 Pure hypercholesterolemia, unspecified; I10 Essential (primary) hypertension; E66.9 Obesity, unspecified; Z68.43 Body mass index [BMI] 50.0-59.9, adult; Z79.899 Other long term (current) drug therapy; Z79.82 Long term (current) use of aspirin
CPT/HCPCS: 36415; 71045; 72125; 72128; 80053; 84484; 85025; 99284; A9270; 93005; 93010

== ENCOUNTER 2022-10-31 16:18 | Emergency (ER) | payer OTHER ==
[2022-10-31] MEDS ORDERED: Sodium Chloride 0.9% 2.5 ML Syringe FLUSH PRN (16:32)
[2022-10-31] MEDS ORDERED: Sodium Chloride 0.9% 10 ML Syringe FLUSH PRN (16:32)
[2022-10-31] MEDS ORDERED: LORazepam 2 MG/ML SDV IVPUSH ONE (16:33)
[2022-10-31 16:47] LABS: BASOPHILS PERCENT AUTO 0.1 % (0.0-1.5); EOSINOPHILS ABSOLUTE AUTO 0.1 K/uL (0.0-0.7); EOSINOPHILS PERCENT AUTO 1.7 % (0.0-7.0); HEMATOCRIT 48.7 % (38.0-50.0); HEMOGLOBIN 15.7 g/dL (13.0-17.0); LYMPHOCYTES ABSOLUTE AUTO 2.6 K/uL (0.6-2.4); LYMPHOCYTES PERCENT AUTO 36.5 % (16.0-40.0); MEAN CORPUSCULAR HGB CONC 32.2 g/dL (31.0-37.0); MEAN CORPUSCULAR VOLUME 83.8 fL (80.0-98.0); MONOCYTES ABSOLUTE AUTO 0.6 K/uL (0.0-0.8); MONOCYTES PERCENT AUTO 7.9 % (0.0-15.0); NEUTROPHILS ABSOLUTE AUTO 3.8 K/uL (1.4-5.7); NEUTROPHILS PERCENT AUTO 53.8 % (48.0-80.0); NRBC ABSOLUTE 0 K/uL; PLATELET COUNT,PLT 331 K/uL (150-400); RED BLOOD CELL COUNT 5.81 M/uL (4.50-5.90); WHITE BLOOD CELL COUNT,WBC 6.98 K/uL (4.0-11.0)
[2022-10-31 16:58] LABS: INR 0.99 (0.86-1.11)
[2022-10-31 17:00] LABS: APPEARANCE,URINE CLEAR; BILIRUBIN,URINE NEGATIVE (NEGATIVE); COLOR,URINE YELLOW; GLUCOSE,URINE NEGATIVE (NEGATIVE); KETONES,URINE NEGATIVE (NEGATIVE); LEUKOCYTE ESTERASE,URINE NEGATIVE (NEGATIVE); NITRITE,URINE NEGATIVE (NEGATIVE); OCCULT BLOOD,URINE NEGATIVE (NEGATIVE); PROTEIN,URINE NEGATIVE (NEGATIVE); UROBILINOGEN,URINE 0.2 EU/dL (<2.0)
[2022-10-31 17:09] LABS: AMPHETAMINES SCREEN, URINE NEGATIVE (CUTOFF=500); BARBITURATE SCREEN,URINE NEGATIVE (CUTOFF=200); BENZODIAZEPINES SCREEN,URINE NEGATIVE (CUTOFF=150); BUPRENORPHINE SCREEN,URINE NEGATIVE (CUTOFF=10); METHADONE SCREEN, URINE NEGATIVE (CUTOFF=200); METHAMPHETAMINES SCREEN, URINE NEGATIVE (CUTOFF=500); OXYCODONE SCREEN,URINE NEGATIVE (CUT0FF=100); PCP SCREEN,URINE NEGATIVE (CUTOFF=25); PROPOXYPHENE SCREEN,URINE NEGATIVE (CUTOFF=300); THC SCREEN,URINE 20 NG/ML NEGATIVE (CUTOFF=50)
[2022-10-31 17:23] LABS: ACETAMINOPHEN <2.0 ug/mL; ALANINE AMINOTRANSFERASE,ALT 32 IU/L (14-63); ALBUMIN 3.9 g/dL (3.4-5.0); ALKALINE PHOSPHATASE 69 U/L (46-116); ASPARTATE AMNIOTRANSFERASE,AST 18 IU/L (15-37); BILIRUBIN TOTAL 0.5 mg/dL (0.2-1.0); BLOOD UREA NITROGEN,BUN 17 mg/dL (7.0-18.0); CARBON DIOXIDE,CO2 27.2 mmol/L (21.0-32.0); CHLORIDE,CL 101 mmol/L (98-107); CREATININE 1.3 mg/dL (0.8-1.3); EST CRCL DRUG DOSING (CG) 87.07 mL/min; GLUCOSE RANDOM 156 mg/dL (74-106); POTASSIUM,K 3.3 mmol/L (3.5-5.1); PROTEIN TOTAL,TP 8.5 g/dL (6.4-8.2); SALICYLATE 0.5 mg/dL (0.0-20.0); SODIUM,NA 138 mmol/L (136-148); TSH ULTRASENSITIVE 12.37 uIU/mL (0.36-3.74)
[2022-10-31 17:24] LABS: A/G RATIO 0.9 (0.9-1.6); ESTIMATED GFR 72 mL/min (>60); ETHANOL BLOOD MEDICAL < 3.0 mg/dL
[2022-10-31 17:41] LABS: T4 FREE 0.82 ng/dL (0.76-1.46)
== END 2022-11-01 15:22 ==
LOC: MW.ED 16:18
DX: F06.1 Catatonic disorder due to known physiological condition (principal); E78.00 Pure hypercholesterolemia, unspecified; I10 Essential (primary) hypertension; E66.9 Obesity, unspecified; Z68.43 Body mass index [BMI] 50.0-59.9, adult; Z79.82 Long term (current) use of aspirin; Z79.899 Other long term (current) drug therapy
CPT/HCPCS: 36415; 70450; 80053; 80143; 80179; 80305; 80307; 81003; 84439; 84443; 85025; 85610; 87635; 93005; 96374; 99285; J2060; J3490; U0002